=== PATIENT | male | born 1940 | race Caucasian/White ===

== ENCOUNTER 2017-05-23 05:38 | Outpatient (CLI) | payer MEDICARE, OTHER ==
[~2017-05-23] VITALS: Ht 180.3 cm; Wt 70.3 kg
[2017-05-23] MEDS ORDERED: MULT-618 PO (12:26)
[2017-05-23] MEDS ORDERED: CEPH500T PO (12:26)
[2017-05-23] MEDS ORDERED: GARL1TAB2 PO (12:26)
[2017-05-23] MEDS ORDERED: GLIM2TAB PO (12:26)
[2017-05-23] MEDS ORDERED: OMG1KC PO (12:26)
[2017-05-23] MEDS ORDERED: METF500T4 PO (12:26)
[2017-05-23] MEDS ORDERED: ATOR10TA66 PO (12:26)
[2017-05-23] MEDS ORDERED: TAMS0.4C2 PO (12:26)
[2017-05-23] MEDS ORDERED: ASPI-999 PO (12:26)
[2017-05-25] MEDS ORDERED: HYDR-3812 PO (11:26)
== END 2017-05-23 12:29 ==
LOC: PREOP 05:38
PROVIDERS: ATTEND Surgery
DX: Z01.818 Encounter for other preprocedural examination (principal); L72.3 Sebaceous cyst

== ENCOUNTER → 2017-11-29 | Outpatient (CLI) | payer MEDICARE, OTHER ==
[~2017-11-29] MED LIST: ACHD5005 PO; ASPI-999 PO; ATOR10TA66 PO; CEPH500T PO; GARL1TAB2 PO; GLIM2TAB PO; METF500T5 PO; MULT-618 PO; OMG1KC PO; TAMS0.4C2 PO
--- NOTE | 2017-11-29 13:19 | Diagnostic Imaging Report ---
PROCEDURE: CT head without contrast. TECHNIQUE: Multiple contiguous axial images were obtained through the brain without the use of intravenous contrast. INDICATION: Syncope and lightheadedness. Comparison is made with prior head CT from 08/05/2012. There is a mucous retention cyst or polyp in the left maxillary sinus. The ventricles and sulci are within normal limits. There is mild periventricular low density noted, likely on the basis of chronic microvascular ischemia. No sulcal effacement, midline shift or hemorrhage is detected. Cisterns are patent. IMPRESSION: Mild chronic white matter changes. No acute intracranial process is detected. Dictated by: Dictated on workstation # [id number]
== END ==
LOC: RAD 12:33
PROVIDERS: ATTEND Family Medicine
DX: R90.82 White matter disease, unspecified (principal)
CPT/HCPCS: 70450

== ENCOUNTER → 2017-12-05 | Outpatient (CLI) | payer MEDICARE, OTHER ==
--- NOTE | 2017-12-05 13:01 | Diagnostic Imaging Report ---
CLINICAL INDICATION: Patient with syncope. COMPARISON: Ultrasound of the carotid arteries dated 08/05/2012. EXAM: Real-time carotid Doppler duplex imaging is performed bilaterally. Peak systolic velocity, ICA/CCA peak systolic ratio, spectral analysis, and vascular morphology are studied. FINDINGS: ARTERY VELOCITY Right Left CCA 1.15 m/s 0.94 m/s ICA 0.95 m/s 1.07 m/s ECA 1.59 m/s 1.32 m/s ICA/CCA 0.83 1.13 VERT.ART Antegrade Antegrade There is mild bilateral carotid artery atherosclerotic disease. No significant stenosis on grayscale imaging. Although there are elevated velocities in the bilateral ECA regions, there is no significant grayscale stenosis. Patient was also noted to have elevated velocities in the right and left ECAs on the prior study measuring 1.74 m/s and 2.00 m/s, respectively. IMPRESSION: 1: Again seen slightly elevated velocities in the bilateral ECAs with no grayscale evidence of significant stenosis. 2: The remainder of the bilateral carotid arteries shows mild atherosclerotic disease with no grayscale or Doppler evidence of significant vascular stenosis. Dictated by: Dictated on workstation # [id number]
== END ==
LOC: RAD 11:51
PROVIDERS: ATTEND Family Medicine
DX: I65.23 Occlusion and stenosis of bilateral carotid arteries (principal); R55 Syncope and collapse
CPT/HCPCS: 93880

== ENCOUNTER → 2021-07-26 | Outpatient (CLI) | payer MEDICARE, OTHER ==
[~2021-07-26] MED LIST changes: -GLIM2TAB PO; +GLIM2TAB4 PO; +METF-397 PO; -METF500T5 PO
--- NOTE | 2021-07-26 16:19 | Diagnostic Imaging Report ---
INDICATION: Nonhealing wound right foot Right leg arterial Doppler study performed in routine fashion with color flow Doppler and waveform analysis. Flow was biphasic throughout the right lower extremity arterial system, with no focal high velocity jets or occluded segments. IMPRESSION: Diffuse biphasic flow without significant focal stenosis or occlusion. Dictated by: Dictated on workstation # [id number]
== END ==
LOC: RAD 13:59
PROVIDERS: ATTEND Family Medicine
DX: L97.511 Non-pressure chronic ulcer of other part of right foot limited to breakdown of skin (principal)
CPT/HCPCS: 93926

== ENCOUNTER → 2021-07-26 | Outpatient (CLI) | payer MEDICARE, OTHER | LOC: RAD | DX: Z53.9 Procedure and treatment not carried out, unspecified reason (principal) ==

== ENCOUNTER → 2021-12-16 | Outpatient (CLI) | payer MEDICARE, OTHER ==
--- NOTE | 2021-12-16 12:19 | Diagnostic Imaging Report ---
PROCEDURE: CT head without contrast. TECHNIQUE: Multiple contiguous axial images were obtained through the brain without the use of intravenous contrast. Auto Exposure Controls were utilized during the CT exam to meet ALARA standards for radiation dose reduction. DATE: December 16, 2021. COMPARISON: CT head November 29, 2017. INDICATION: 81-year-old male, seizure. FINDINGS: There are polypoid lesions in the right and left maxillary sinuses likely reflecting mucous retention cysts or polyps. There is no air-fluid level in the paranasal sinuses. The mastoid air cells and middle ears are well aerated. 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 The ventricles and cerebral spinal fluid spaces are of normal size and configuration for the patient's age. There is no mass effect or midline shift. There is no acute intracranial hemorrhage. There is no abnormal extra-axial fluid collection. IMPRESSION: 1. No identified acute intracranial abnormality. Faxed to Dr. Derrick Tam DO at 12:17 p.m. by cvb. Dictated by: Dictated on workstation # [id number]
--- NOTE | 2021-12-16 12:22 | Diagnostic Imaging Report ---
EXAMINATION: Chest 2 view HISTORY: Cough. Seizure. COMPARISON: None available. FINDINGS: The lung volumes are normal. No focal consolidation is seen. No large pleural effusion or pneumothorax is seen. The cardiomediastinal silhouette is normal in size and contour. A small amount of calcified aortic atherosclerotic plaque is seen. No acute osseous abnormality is seen. IMPRESSION: 1. No acute pleuroparenchymal process. Called to Dr. Tam at 12:21 by cvb. Dictated by: Dictated on workstation # [id number]
[2021-12-16 12:25] LABS: BASOPHILS % (AUTO) 1 % (0-10); EOSINOPHILS % (AUTO) 1 % (0-10); HEMATOCRIT 45 % (40-54); HEMOGLOBIN 14.9 g/dL (13.3-17.7); LYMPHOCYTES % (AUTO) 18 % (12-44); MEAN CORPUSCULAR HEMOGLOBIN 30 pg (25-34); MEAN CORPUSCULAR HGB CONC 33 g/dL (32-36); MEAN CORPUSCULAR VOLUME 90 fL (80-99); MEAN PLATELET VOLUME 9.6 fL (9.0-12.2); MONOCYTES # (AUTO) 0.8 10^3/uL (0.0-1.0); MONOCYTES % (AUTO) 14 % (0-12); NEUTROPHILS # (AUTO) 3.9 10^3/uL (1.8-7.8); NEUTROPHILS % (AUTO) 67 % (42-75); PLATELET COUNT 229 10^3/uL (130-400); WHITE BLOOD COUNT 5.8 10^3/uL (4.3-11.0)
[2021-12-16 12:56] LABS: ALBUMIN 4.2 GM/DL (3.2-4.5); BILIRUBIN,TOTAL 0.3 MG/DL (0.1-1.0); CALCIUM 9.1 MG/DL (8.5-10.1); CREATININE SERUM 0.97 MG/DL (0.60-1.30); POTASSIUM 4.2 MMOL/L (3.6-5.0); TOTAL PROTEIN 7.1 GM/DL (6.4-8.2)
== END ==
LOC: RAD 12:00
PROVIDERS: ATTEND Family Medicine
DX: R56.9 Unspecified convulsions (principal); R05.9 Cough, unspecified
CPT/HCPCS: 36415; 70450; 71046; 80053; 85025